=== PATIENT | male | born 1950 | race Caucasian/White ===

== ENCOUNTER → 2018-08-06 09:48 | Outpatient (CLI) | payer MEDICARE, OTHER ==
--- NOTE | 2018-08-07 10:45 | ST ---
PATIENT:KAYLEE DAMICO MEDICAL RECORD: [id number] SEX: M LOCATION:[facility] [place] ORDER #: ADMISSION DATE: 08/06/18 AGE OF PATIENT: 68 REFERRING PHYSICIAN: INTERPRETING PHYSICIAN: PAULA QUINTANA MD DATE OF SERVICE: 08/06/2018 PROCEDURE: Nuclear stress test. INDICATION: Angina, hypertension, abnormal ECG. He was exercised on standard Lexiscan protocol with 33 mCi of sestamibi injected at peak stress, 11 mCi were used previously for rest images. FINDINGS: Gated SPECT reveals preserved ejection fraction at 63% with good wall motion and thickening and brightening throughout all segments. SPECT imaging Cardiolite was used as myocardial fusion agent. There is homogeneous uptake throughout all segments at rest and stress with no evidence of inducible ischemia or previous infarction. OVERALL IMPRESSION: 1. This is a normal nuclear stress test with no evidence of inducible ischemia or previous infarction. 2. Gated SPECT reveals a preserved ejection fraction at 63%. In this patient with ongoing symptomatology, the current scan does not suggest the presence of hemodynamically significant coronary artery disease. Evaluate noncardiac etiology of chest pain. 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
== END | disposition home or self-care (01) ==
LOC: D.HCCARDIO 09:48
DX: I20.9 Angina pectoris, unspecified (principal)